=== PATIENT | male | born 1975 | race Caucasian/White ===

== ENCOUNTER → 2017-04-24 | Outpatient (CLI) | payer BC ==
--- NOTE | 2017-04-27 13:01 | CONS ---
PCP is Dr. Obrien. REASON FOR THE EVALUATION: Loud snoring. 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 He snores loud and his is unable to sleep next him because of his loud snore. He sleeps on his side. He has a nose breather. On 2 occasions, he has woken up from sleep due to choking/gasping; however, this has not been of a frequent occurrence. He goes to bed around 10 p.m., wakes up at 3:30 a.m. in the morning and he has to be at work at around 5 a.m. and he works 12 hour shifts 4 days a week. On weekends, he goes to bed at the same time, however, wakes up at 6 a.m. in the morning. He seems to be averaging between 5 to 7 hours of sleep. No nighttime GERD or heartburn. No palpitations. No restlessness of the lower extremities. No sleep walking or sleep talking. No dry mouth. No reported grinding of the teeth. He has undergone recent dental surgery, dental procedure and he is currently wearing ( ). His current Glendale score is 18. He does not fall asleep while driving. He does not fall asleep while performing routine day to day activities or while on the job. No history of substance. No history of alcoholism. Negative family history for sleep apnea. Past medical history is negative. Past surgical history includes lymph node removed from the neck, benign and hernia repair. Allergies are to PENICILLIN. Medications are none. SOCIAL HISTORY: Nonsmoker. No history of alcohol. No history of IV drugs. 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 FAMILY HISTORY: Negative for sleep apnea. REVIEW OF SYSTEMS: Twelve-point review of systems was done, positive findings were mentioned above in history of present illness. BP is 152/92, pulse 74, respirations 16, temperature 98.2, saturation 98% on room air. Weight is 193, height is 5 feet 7 inches. Neck size is 16-1/4. BMI is 30.2. GENERAL APPEARANCE: Calm, comfortable. HEENT; Mallampati class 2. There is no goiter or neck masses. Lungs are clear to auscultation. Heart sounds regular rate and rhythm. Normal S1 and S2. ABDOMEN: Soft, nontender. No organomegaly. EXTREMITIES: No edema, cyanosis or clubbing. IMPRESSION: 1. Loud snoring. 2. Insufficient sleep syndrome with chronic hypersomnia and sleepiness with an Glendale score of 18. 3. Questionable obstructive sleep apnea. PLAN: My overall suspicion for sleep apnea is low. I think the patient has insufficiency sleep syndrome. He needs to extend his sleep hours by an average of 2 hours per night. I would recommend him going to sleep at an earlier hour, probably at around 8 p.m. on working days. His sleepiness is probably linked to his chronic sleep insufficiency. At the same time, due to his loud snore, will proceed with a home sleep study to look for any significant sleep breathing disorder. Encourage weight loss. Avoid alcoholic beverages late at night time. Avoid muscle relaxants. Implement good sleep hygiene measures. Will continue to follow and make further recommendations based on the results of the home sleep study. PEPITO
== END | disposition home or self-care (01) ==
LOC: SLEEP 16:38
PROVIDERS: ATTEND Internal Medicine Critical Care Medicine
DX: R06.83 Snoring (principal); F51.12 Insufficient sleep syndrome
CPT/HCPCS: 99211

== ENCOUNTER → 2019-11-14 | Outpatient (CLI) | payer BC ==
[2019-11-14 08:02] LABS: Basophils % (A) 0 %; Eosinophils # (A) 0.1 k/uL (0-0.7); Eosinophils % (A) 2 %; HCT 42.7 % (39.0-53.0); HGB 13.9 gm/dL (13.0-17.5); Lymphocytes # (A) 1.7 k/uL (1.0-4.8); Lymphocytes % (A) 30 %; MCH 30.1 pg (25.0-35.0); MCHC 32.5 g/dL (31.0-37.0); MCV 92.8 fL (80.0-100.0); Mean Platelet Volume 7.4; Monocytes # (A) 0.4 k/uL (0-1.0); Monocytes % (A) 7 %; Neutrophils # (A) 3.3 k/uL (1.3-7.7); Neutrophils % (A) 58 %; Platelet Count 278 k/uL (150-450); RBC 4.61 m/uL (4.30-5.90); RDW 12.5 % (11.5-15.5); WBC 5.8 k/uL (3.8-10.6)
[2019-11-14 18:03] LABS: Albumin 4.6 g/dL (3.80-4.90); Albumin/Globulin Ratio 2.19 (1.60-3.17); Anion Gap 9.4 mmol/L (4.00-12.00); BUN/Creat Ratio 16.15 Ratio (12.00-20.00); Calcium 9.6 mg/dL (8.7-10.3); Carbon Dioxide 26.6 mmol/L (21.6-31.8); Chol/HDL Ratio 4.39; Globulin 2.1 g/dL (1.6-3.3); LDL Cholesterol,Calculated 130.8 mg/dL (0.0-131.0); Non-African American GFR(CKD) 67.3 (60.0-200.0); Potassium 4.5 mmol/L (3.5-5.5); Total Bilirubin 0.6 mg/dL (0.2-1.2); Total Protein 6.7 g/dL (6.2-8.2); VLDL Calculation 18.2 mg/dL (5.00-40.00)
== END | disposition home or self-care (01) ==
LOC: LABWHC1 07:28
PROVIDERS: ATTEND Internal Medicine
DX: Z00.00 Encounter for general adult medical examination without abnormal findings (principal); I10 Essential (primary) hypertension; Z12.5 Encounter for screening for malignant neoplasm of prostate
CPT/HCPCS: 80061; 80053; 85025; 36415; G0103

== ENCOUNTER 2020-09-25 23:46 | Inpatient (IN) | payer BC ==
[2020-09-26] MEDS ORDERED: SODIUM CHLORIDE 0.9% 500 ML 500 ML IV STA (00:04)
[2020-09-26] MEDS ORDERED: DILTIAZEM ORAL 30 MG TAB PO STA (00:07)
--- NOTE | 2020-09-26 00:10 | ED ---
General Adult HPI - General Source: patient Mode of arrival: wheelchair Limitations: no limitations <Ruth Sultana - Last Filed: 09/26/20 01:55> <Viet James - Last Filed: 09/26/20 09:09> - General Chief complaint: Syncope Stated complaint: Syncope Time Seen by Provider: 09/25/20 23:53 - History of Present Illness Initial comments: 44-year-old male patient presents to the emergency department today for ev aluation after experiencing a syncopal event at home. Patient states he got up from bed and went to the bathroom, urinated, and turn to come out when he passed out. states he did strike his head. States he was unconscious for approximately 1 minute before he came to. They did have EMS come out, decided to bring themselves in. Patient states he does feel somewhat disoriented at this time. Denies any headache, blurred vision, double vision. Denies any chest pain or shortness of breath. Denies palpitations. Denies any injuries to arms or legs. Denies recent diarrhea, nausea, or vomiting. States he has been eating and drinking without difficulty. Patient denies any recent rash, fever, chills, cough, abdominal pain, nausea, vomiting, diarrhea, constipation, back pain, hematuria, dysuria, urinary urgency, urinary frequency, or any other complaints. (Ruth Sultana) - Related Data Home Medications Medication Instructions Recorded Confirmed Lisinopril [Zestril] 20 mg PO DAILY 09/26/20 09/26/20 amLODIPine [Norvasc] 5 mg PO DAILY 09/26/20 09/26/20 Allergies Allergy/AdvReac Type Severity Reaction Status Date / Time Penicillins Allergy Unknown Verified 09/25/20 23:52 Review of Systems ROS Other: All systems not noted in ROS Statement are negative. <Ruth Sultana - Last Filed: 09/26/20 01:55> ROS Other: All systems not noted in ROS Statement are negative. <Viet James - Last Filed: 09/26/20 09:09> ROS Statement: Those systems with pertinent positive or pertinent negative responses have been documented in the HPI. Past Medical History Past Medical History: Cancer, Hypertension Additional Past Medical History / Comment(s): lymphoma History of Any Multi-Drug Resistant Organisms: None Reported Past Surgical History: Hernia Repair Past Psychological History: No Psychological Hx Reported Smoking Status: Never smoker Past Alcohol Use History: Occasional Past Drug Use History: None Reported <Ruth Sultana - Last Filed: 09/26/20 01:55> General Exam Limitations: no limitations General appearance: alert, in no apparent distress, other (This is a well- developed, well-nourished adult male patient in no acute distress. Vital signs upon presentation are temperature 97.9F, pulse 87, respirations 18, blood pressure 159/88, pulse ox 99% on room air.) Eye exam: Present: normal appearance, PERRL, EOMI. Absent: scleral icterus, conjunctival injection, periorbital swelling ENT exam: Present: normal exam, normal oropharynx, mucous membranes moist Respiratory exam: Present: normal lung sounds bilaterally. Absent: respiratory distress, wheezes, rales, rhonchi, stridor Cardiovascular Exam: Present: regular rate, irregular rhythm, normal heart sounds. Absent: systolic murmur, diastolic murmur, rubs, gallop, clicks GI/Abdominal exam: Present: soft, normal bowel sounds. Absent: distended, tenderness, guarding, rebound, rigid Neurological exam: Present: alert, oriented X3, CN II-XII intact Psychiatric exam: Present: normal affect, normal mood Skin exam: Present: warm, dry, intact, normal color. Absent: rash <Ruth Sultana M - Last Filed: 09/26/20 01:55> Course Vital Signs 09/25/20 09/26/20 09/26/20 23:47 01:16 02:28 Temperature 97.9 F Pulse Rate 87 90 95 Respiratory 18 17 17 Rate Blood Pressure 159/88 124/100 128/91 O2 Sat by Pulse 99 97 98 Oximetry 09/26/20 09/26/20 09/26/20 04:11 06:10 07:40 Temperature 98.1 F Pulse Rate 89 90 98 Respiratory 18 16 18 Rate Blood Pressure 128/90 128/90 149/93 O2 Sat by Pulse 97 98 97 Oximetry Medical Decision Making - Lab Data Result diagrams: 09/26/20 00:30 09/26/20 00:30 - Radiology Data Radiology results: report reviewed, image reviewed <Ruth Sultana - Last Filed: 09/26/20 01:55> - Lab Data Result diagrams: 09/26/20 00:30 09/26/20 00:30 <Viet James - Last Filed: 09/26/20 09:09> - Medical Decision Making 44-year-old male patient past medical history significant for hypertension, not currently taking medication presents to the emergency department today for evaluation after having a syncopal episode at home. Physical examination did reveal irregularly irregular heart sounds. Clear lung sounds. Does have some tenderness and soft tissue swelling noted to the posterior scalp. He is n eurologically intact with no focal deficits. Patient's heart rate was initially in the 90s so we did give an oral dose of Cardizem. We did wait for results of CT brain which were negative to start heparin. Patient's heart rate then increased again was in the 120s to 130s so we did start IV Cardizem. He'll be admitted to the hospital for cardiology evaluation. Patient and are agreeable this plan. (Ruth Sultana) - Lab Data Lab Results 09/26/20 09/26/20 09/26/20 Range/Units 00:30 00:30 00:30 WBC 9.5 (3.8-10.6) k/uL RBC 4.98 (4.30-5.90) m/uL Hgb 15.1 (13.0-17.5) gm/dL Hct 44.4 (39.0-53.0) % MCV 89.2 (80.0-100.0) fL MCH 30.3 (25.0-35.0) pg MCHC 34.0 (31.0-37.0) g/dL RDW 12.2 (11.5-15.5) % Plt Count 321 (150-450) k/uL MPV 6.5 Neutrophils % 60 % Lymphocytes % 27 % Monocytes % 8 % Eosinophils % 3 % Basophils % 1 % Neutrophils # 5.7 (1.3-7.7) k/uL Lymphocytes # 2.6 (1.0-4.8) k/uL Monocytes # 0.8 (0-1.0) k/uL Eosinophils # 0.2 (0-0.7) k/uL Basophils # 0.1 (0-0.2) k/uL PT 10.2 (9.0-12.0) sec INR 1.0 (<1.2) APTT 22.1 (22.0-30.0) sec Sodium 136 L (137-145) mmol/L Potassium 3.6 (3.5-5.1) mmol/L Chloride 103 (98-107) mmol/L Carbon Dioxide 26 (22-30) mmol/L Anion Gap 7 mmol/L BUN 21 H (9-20) mg/dL Creatinine 0.92 (0.66-1.25) mg/dL Est GFR (CKD-EPI)AfAm >90 (>60 ml/min/1.73 sqM) Est GFR (CKD-EPI)NonAf >90 (>60 ml/min/1.73 sqM) Glucose 114 H (74-99) mg/dL Calcium 9.4 (8.4-10.2) mg/dL Magnesium 2.1 (1.6-2.3) mg/dL Total Bilirubin 0.3 (0.2-1.3) mg/dL AST 31 (17-59) U/L ALT 25 (4-49) U/L Alkaline Phosphatase 91 (38-126) U/L Troponin I (0.000-0.034) ng/mL Total Protein 7.6 (6.3-8.2) g/dL Albumin 4.6 (3.5-5.0) g/dL 09/26/20 Range/Units 00:30 WBC (3.8-10.6) k/uL RBC (4.30-5.90) m/uL Hgb (13.0-17.5) gm/dL Hct (39.0-53.0) % MCV (80.0-100.0) fL MCH (25.0-35.0) pg MCHC (31.0-37.0) g/dL RDW (11.5-15.5) % Plt Count (150-450) k/uL MPV Neutrophils % % Lymphocytes % % Monocytes % % Eosinophils % % Basophils % % Neutrophils # (1.3-7.7) k/uL Lymphocytes # (1.0-4.8) k/uL Monocytes # (0-1.0) k/uL Eosinophils # (0-0.7) k/uL Basophils # (0-0.2) k/uL PT (9.0-12.0) sec INR (<1.2) APTT (22.0-30.0) sec Sodium (137-145) mmol/L Potassium (3.5-5.1) mmol/L Chloride (98-107) mmol/L Carbon Dioxide (22-30) mmol/L Anion Gap mmol/L BUN (9-20) mg/dL Creatinine (0.66-1.25) mg/dL Est GFR (CKD-EPI)AfAm (>60 ml/min/1.73 sqM) Est GFR (CKD-EPI)NonAf (>60 ml/min/1.73 sqM) Glucose (74-99) mg/dL Calcium (8.4-10.2) mg/dL Magnesium (1.6-2.3) mg/dL Total Bilirubin (0.2-1.3) mg/dL AST (17-59) U/L ALT (4-49) U/L Alkaline Phosphatase (38-126) U/L Troponin I <0.012 (0.000-0.034) ng/mL Total Protein (6.3-8.2) g/dL Albumin (3.5-5.0) g/dL - Radiology Data CT brain without contrast was obtained. Report was reviewed in its entirety. Impression by Dr. Giles shows no acute hemorrhage, hydrocephalus, or mass effect. Small air-fluid level in the left maxillary sinus. (Ruth Sultana) Disposition Decision to Admit Reason: Admit from EC Decision Date: 09/26/20 Decision Time: 01:25 <Ruth Sultana - Last Filed: 09/26/20 01:55> <Viet James - Last Filed: 09/26/20 09:09> Clinical Impression: New onset a-fib, Syncope Disposition: ADMITTED IP TO THIS [facility] Condition: Serious
[2020-09-26 00:34] LABS: Basophils # (A) 0.1 k/uL (0-0.2); Basophils % (A) 1 %; Eosinophils # (A) 0.2 k/uL (0-0.7); Eosinophils % (A) 3 %; HCT 44.4 % (39.0-53.0); HGB 15.1 gm/dL (13.0-17.5); Lymphocytes # (A) 2.6 k/uL (1.0-4.8); Lymphocytes % (A) 27 %; MCH 30.3 pg (25.0-35.0); MCV 89.2 fL (80.0-100.0); Mean Platelet Volume 6.5; Monocytes # (A) 0.8 k/uL (0-1.0); Monocytes % (A) 8 %; Neutrophils # (A) 5.7 k/uL (1.3-7.7); Neutrophils % (A) 60 %; Platelet Count 321 k/uL (150-450); RBC 4.98 m/uL (4.30-5.90); RDW 12.2 % (11.5-15.5); WBC 9.5 k/uL (3.8-10.6)
[2020-09-26 00:44] LABS: ALT 25 U/L (4-49); AST 31 U/L (17-59); African American GFR (CKD) >90 (>60 ml/min/1.73 sqM); Albumin 4.6 g/dL (3.5-5.0); Alkaline Phosphatase 91 U/L (38-126); Anion Gap 7 mmol/L; Blood Urea Nitrogen 21 mg/dL (9-20); Calcium 9.4 mg/dL (8.4-10.2); Carbon Dioxide 26 mmol/L (22-30); Chloride 103 mmol/L (98-107); Glucose 114 mg/dL (74-99); Magnesium 2.1 mg/dL (1.6-2.3); Non-African American GFR(CKD) >90 (>60 ml/min/1.73 sqM); Potassium 3.6 mmol/L (3.5-5.1); Sodium 136 mmol/L (137-145); Total Bilirubin 0.3 mg/dL (0.2-1.3); Total Protein 7.6 g/dL (6.3-8.2)
[2020-09-26 01:09] LABS: Partial Thromboplastin Time 22.1 sec (22.0-30.0); Prothrombin Time 10.2 sec (9.0-12.0)
--- NOTE | 2020-09-26 01:11 | XR ---
EXAM: XR Chest, 2 Views CLINICAL HISTORY: ITS.REASON XR Reason: dysrhythmia TECHNIQUE: Frontal and lateral views of the chest. COMPARISON: No relevant prior studies available. FINDINGS: Lungs: No consolidation or mass. Pleural space: No effusion. Heart: No cardiomegaly. Bones/joints: No acute findings. IMPRESSION: No acute cardiopulmonary process.
--- NOTE | 2020-09-26 01:11 | CT ---
EXAM: CT Head Without Intravenous Contrast CLINICAL HISTORY: ITS.REASON CT Reason: Head injury TECHNIQUE: Axial computed tomography images of the head/brain without intravenous contrast. CTDI is 49.27 mGy and DLP is 1123.4 mGy-cm. This CT exam was performed using one or more of the following dose reduction techniques: automated exposure control, adjustment of the mA and/or kV according to patient size, and/or use of iterative reconstruction technique. COMPARISON: No relevant prior studies available. FINDINGS: Brain: No hemorrhage or mass effect. Ventricles: No hydrocephalus. Bones/joints: Unremarkable. Soft tissues: Unremarkable. Sinuses: Small air-fluid level in the left maxillary sinus. Mastoid air cells: Clear. IMPRESSION: No acute hemorrhage, hydrocephalus, or mass effect. Small air-fluid level in the left maxillary sinus.
[2020-09-26] MEDS ORDERED: HEPARIN SODIUM,PORCINE 5,000 UNIT/ML 1 ML VIAL IV ONE (01:24)
[2020-09-26] MEDS ORDERED: DILTIAZEM DRIP BOLUS FROM BAG 1 MG SOLN IV ONE (01:24)
[2020-09-26] MEDS ORDERED: NALOXONE 0.4 MG/ML 1 ML VIAL IV PRN (01:25)
[2020-09-26] MEDS ORDERED: DILTIAZEM 125 MG in SODIUM CHLORIDE 0.9% 100 ML IV SCH (01:30)
[2020-09-26] MEDS: HEPARIN SOD,PORK IN 0.45% NACL 25,000 UNIT in 0.45% NACL 1 250ML.BAG IV SCH (01:59)
[2020-09-26] MEDS: SODIUM CHLORIDE 0.9% 1,000 ML IV SCH (02:04)
--- NOTE | 2020-09-26 03:47 | P.HPIM ---
History of Present Illness H&P Date: 09/26/20 Chief Complaint: syncope 44 year old male with hypertension , and history of lymphoma s/p radiation patient was at baseline status of health. today he woke up to go to the bathroom , felt dizzy and passed out, fell down and hit his head, his respnded to the thud and called 911 when she found her not responsive lasted one min and regained consciousness. he only recalls dizziness , denies any chest pain , or trouble breathing, denies any palpitations. he denies any exertional chest pain , or any cardiac history. he denies any recent travel, or hospitalization. 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 in the ED , blood work was unremarkable patient started on cardizem and heparin drip Review of Systems Pertinent positives as noted in HPI. All other systems were reviewed and are negative Past Medical History Past Medical History: Cancer, Hypertension Additional Past Medical History / Comment(s): lymphoma History of Any Multi-Drug Resistant Organisms: None Reported Past Surgical History: Hernia Repair Past Psychological History: No Psychological Hx Reported Smoking Status: Never smoker Past Alcohol Use History: Occasional Past Drug Use History: None Reported - Past Family History family Family Medical History: No Reported History Medications and Allergies Home Medications Medication Instructions Recorded Confirmed Type Lisinopril [Zestril] 20 mg PO DAILY 09/26/20 09/26/20 History amLODIPine [Norvasc] 5 mg PO DAILY 09/26/20 09/26/20 History Allergies Allergy/AdvReac Type Severity Reaction Status Date / Time Penicillins Allergy Unknown Verified 09/25/20 23:52 Physical Exam Vitals: Vital Signs Temp Pulse Resp BP Pulse Ox 09/26/20 02:28 95 17 128/91 98 09/26/20 01:16 90 17 124/100 97 09/25/20 23:47 97.9 F 87 18 159/88 99 Intake and Output 09/25/20 09/25/20 09/26/20 14:59 22:59 06:59 Other: Weight 83.915 kg Constitutional: No acute distress, conversant, pleasant Eyes: Anicteric sclerae, moist conjunctiva, Pupils equal round reactive to light ENMT: NC/AT Oropharynx clear, no erythema, or exudates Neck: Supple, FROM, no masses, or JVD No carotid bruits No thyromegaly Lungs: Clear to auscultation Clear to percussion Normal respiratory effort, no accessory muscle use Cardiovascular: Heart irregular in rate and rhythm No murmurs, gallops, or rubs No peripheral edema Abdominal: Soft Nontender, no guarding, rebound or rigidity Abdomen moving with respiration Normoactive bowel sounds No hepatomegaly, No splenomegaly No palpable mass No abdominal wall hernia noted Skin: Normal temperature, tone, texture, turgor No induration No subcutaneous nodules No rash, lesions No ulcers Extremities: No digital cyanosis No clubbing Pedal pulses intact and symmetrical Radial pulses intact and symmetrical No calf tenderness Psychiatric: Alert and oriented to person, place and time Appropriate affect fair judgement Neuro Muscles Strength 5/5 in all 4 extremities Sensation to light touch grossly present throughout Cranial nerves II-XII grossly intact No focal sensory deficits Lymphatics: no palpable cervical or supraclavicular , or inguinal lymph nodes Results CBC & Chem 7: 09/26/20 00:30 09/26/20 00:30 Labs: Abnormal Lab Results - Last 24 Hours (Table) 09/26/20 Range/Units 00:30 Sodium 136 L (137-145) mmol/L BUN 21 H (9-20) mg/dL Glucose 114 H (74-99) mg/dL Assessment and Plan Assessment: new onset afib with RVR on heparin drip and cardizem drip cardiology consult check TSH electrolytes unremarkable check ECHO 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
[2020-09-26] MEDS: amLODIPine 5 MG TAB PO SCH (07:41)
[2020-09-26] MEDS ORDERED: ONDANSETRON 4 MG/2 ML VIAL IVP PRN (09:16)
[2020-09-26] MEDS ORDERED: ACETAMINOPHEN TAB 325 MG TAB PO PRN (09:17)
[2020-09-26] MEDS: HEPARIN SODIUM,PORCINE 5,000 UNIT/ML 1 ML VIAL IV PRN ×2 (09:26→23:35)
[2020-09-26] MEDS: lisinopriL 20 MG TAB PO SCH (09:28)
[2020-09-26] MEDS: METOPROLOL TARTRATE 25 MG TAB PO SCH ×2 (09:29→20:53)
--- NOTE | 2020-09-26 13:09 | P.PN ---
Progress Note - Text Progress Note Date: 09/26/20 I saw and evaluated the patient at bedside today. I agree with the plan as documented in the H&P. Cardiology will consult on patient today. I recommended that patient will require a sleep study as an outpatient due to high likelihood of sleep apnea. tells me he snores loudly and sometimes stops breathing for short periods of time at night.
--- NOTE | 2020-09-26 13:53 | P.CRDCN ---
History of Present Illness Consult date: 09/26/20 History of present illness: CHIEF COMPLAINT: New-onset A. fib, syncope HISTORY OF PRESENT ILLNESS: This is a 44-year-old male with a past medical history significant for hypertension. Patient does not follow with a cardiologi st. We have been asked to see the patient in consultation for A. fib and syncope. Patient examined this morning in the emergency room. Patient reports he had just finished urinating yesterday when he began to feel a little dizzy. Patient then passed out. There was loss of consciousness per the patient's . Patient was brought to the hospital for further evaluation. EKG completed revealed atrial fibrillation. The patient's heart rate did become uncontrolled in the emergency room and he was started on IV Cardizem drip. He has since converted to sinus mechanism. He denies chest pain or pressure. Denies shortness of breath. Denies family history of heart disease. DIAGNOSTICS: EKG reveals atrial fibrillation Chest xray no active process Laboratory data: WBC 9.5. Hemoglobin 15.1. Platelet count 321. Sodium 136. Potassium 3.6. BUN 21. Creatinine 0.92. Magnesium 2.1. Troponin negative 1. Current home cardiac medications include Norvasc 5 mg daily and lisinopril 20 mg daily REVIEW OF SYSTEMS: At the time of my exam: CONSTITUTIONAL: Denies fever or chills. HEENT: Denies blurred vision, vision changes, or eye pain. Denies hemoptysis CARDIOVASCULAR: Denies chest pain, orthopnea, PND or palpitations RESPIRATORY: No shortness of breath. GASTROINTESTINAL: Denies abdominal pain. Denies nausea or vomiting. HEMATOLOGIC: Denies bleeding disorders. GENITOURINARY: Denies any blood in urine. SKIN: Denies pruitis. Denies rash. PHYSICAL EXAM: VITAL SIGNS: Reviewed. GENERAL: Well-developed in no acute distress. HEENT: Head is normocephalic. Pupils are equal, round. Sclerae anicteric. Mucous membranes of the mouth are moist. Neck supple. No JVD or thyromegaly LUNGS: Respirations even and unlabored. Lungs essentially clear to auscultation bilaterally. HEART: Regular rate and rhythm. S1 and S2 heard. ABDOMEN: Soft. Nondistended. Nontender. EXTREMITIES: Normal range of motion. No clubbing or cyanosis. Peripheral pulses intact. No lower extremity edema NEUROLOGIC: Awake and alert. Oriented x 3. ASSESSMENT: Syncope New-onset paroxysmal atrial fibrillation with RVR, currently maintaining sinus mechanism Hypertension PLAN: Resume home cardiac medications Check TSH Check d-dimer Continue IV heparin Check orthostatic blood pressures Begin metoprolol 25 mg twice a day Discontinue IV Cardizem Obtain 2-D echo to assess cardiac structure and function Patient to undergo stress test tomorrow Nurse practitioner note has been reviewed by physician. Signing provider agrees with the documented findings, assessment, and plan of care. Past Medical History Past Medical History: Cancer, Hypertension Additional Past Medical History / Comment(s): lymphoma- chemo and radiation 15 years ago History of Any Multi-Drug Resistant Organisms: None Reported Past Surgical History: Hernia Repair Past Anesthesia/Blood Transfusion Reactions: No Reported Reaction Past Psychological History: No Psychological Hx Reported Smoking Status: Never smoker Past Alcohol Use History: Occasional Past Drug Use History: None Reported - Past Family History family Family Medical History: No Reported History Medications and Allergies Home Medications Medication Instructions Recorded Confirmed Type Lisinopril [Zestril] 20 mg PO DAILY 09/26/20 09/26/20 History amLODIPine [Norvasc] 5 mg PO DAILY 09/26/20 09/26/20 History Allergies Allergy/AdvReac Type Severity Reaction Status Date / Time Penicillins Allergy Unknown Verified 09/26/20 09:38 Physical Exam Vitals: Vital Signs Temp Pulse Pulse Resp BP BP Pulse Ox 09/26/20 12:57 97.6 F 67 18 133/85 96 09/26/20 11:00 74 14 127/89 96 09/26/20 10:51 73 18 127/89 97 09/26/20 10:21 74 18 141/92 100 09/26/20 10:09 84 18 129/89 96 09/26/20 10:00 74 14 129/89 97 09/26/20 09:35 86 18 129/89 97 09/26/20 09:12 91 18 09/26/20 09:00 87 14 149/93 09/26/20 08:00 81 14 149/93 09/26/20 07:40 98.1 F 98 18 149/93 97 09/26/20 06:10 90 16 128/90 98 09/26/20 04:11 89 18 128/90 97 09/26/20 02:28 95 17 128/91 98 09/26/20 01:16 90 17 124/100 97 09/25/20 23:47 97.9 F 87 18 159/88 99 Intake and Output 09/25/20 09/26/20 09/26/20 22:59 06:59 14:59 Intake Total 111.104 Balance 111.104 Intake: Intake, IV Titration 111.104 Amount Diltiazem 125 mg In 36.25 Sodium Chloride 0.9% 100 ml @ 5 MG/HR 5 mls/hr IV .Q24H [facility] Rx#:[id number] Heparin Sod,Pork in 0.45% 74.854 NaCl 25,000 unit In 0.45 % NaCl 1 250ml.bag @ 12 UNITS/KG/HR 10.07 mls/hr IV .Q24H [facility] Rx#: [id number] Other: Weight 83.915 kg 83.915 kg Results 09/26/20 00:30 09/26/20 00:30 Cardiac Enzymes 09/26/20 09/26/20 Range/Units 00:30 00:30 AST 31 (17-59) U/L Troponin I <0.012 (0.000-0.034) ng/mL Coagulation 09/26/20 09/26/20 Range/Units 00:30 08:06 PT 10.2 (9.0-12.0) sec APTT 22.1 38.5 H (22.0-30.0) sec CBC 09/26/20 Range/Units 00:30 WBC 9.5 (3.8-10.6) k/uL RBC 4.98 (4.30-5.90) m/uL Hgb 15.1 (13.0-17.5) gm/dL Hct 44.4 (39.0-53.0) % Plt Count 321 (150-450) k/uL Comprehensive Metabolic Panel 09/26/20 Range/Units 00:30 Sodium 136 L (137-145) mmol/L Potassium 3.6 (3.5-5.1) mmol/L Chloride 103 (98-107) mmol/L Carbon Dioxide 26 (22-30) mmol/L BUN 21 H (9-20) mg/dL Creatinine 0.92 (0.66-1.25) mg/dL Glucose 114 H (74-99) mg/dL Calcium 9.4 (8.4-10.2) mg/dL AST 31 (17-59) U/L ALT 25 (4-49) U/L Alkaline Phosphatase 91 (38-126) U/L Total Protein 7.6 (6.3-8.2) g/dL Albumin 4.6 (3.5-5.0) g/dL Current Medications Generic Name Dose Route Start Last Admin Trade Name Freq PRN Reason Stop Dose Admin Acetaminophen 650 mg 09/26/20 09:17 09/26/20 09:28 Acetaminophen Tab 325 Mg Tab PO 650 mg Q4HR PRN Administration Fever and/ or Pain Amlodipine Besylate 5 mg 09/26/20 09:00 09/26/20 07:41 Amlodipine 5 Mg Tab PO 5 mg DAILY [facility] Administration Heparin Sodium (Porcine) 0 unit 09/26/20 01:24 09/26/20 09:26 Heparin Sodium,Porcine 5,000 Unit/Ml 1 Ml Vial IV 2,075 unit PER PROTOCOL PRN Administration Low PTT Protocol Diltiazem HCl 125 mg/ Sodium 125 mls @ 5 mls/hr 09/26/20 01:30 09/26/20 09:15 Chloride IV 5 mg/hr .Q24H [facility] 5 mls/hr Infusion 5 MG/HR Heparin Sodium/Sodium Chloride 250 mls @ 10.07 mls/hr 09/26/20 01:30 09/26/20 09:25 25,000 unit/ Sodium Chloride IV 10 units/kg/hr .Q24H [facility] 8.392 mls/hr Titration Protocol 12 UNITS/KG/HR Sodium Chloride 1,000 mls @ 20 mls/hr 09/26/20 01:30 09/26/20 02:04 Saline 0.9% IV 20 mls/hr .Q24H [facility] Administration Lisinopril 20 mg 09/26/20 09:15 09/26/20 09:28 Lisinopril 20 Mg Tab PO 20 mg DAILY SAL Administration Metoprolol Tartrate 25 mg 09/26/20 09:15 09/26/20 09:29 Metoprolol Tartrate 25 Mg Tab PO 25 mg BID SAL Administration Naloxone HCl 0.2 mg 09/26/20 01:25 Naloxone 0.4 Mg/Ml 1 Ml Vial IV Q2M PRN Opioid Reversal Ondansetron HCl 4 mg 09/26/20 09:16 09/26/20 09:29 Ondansetron 4 Mg/2 Ml Vial IVP 4 mg Q6HR PRN Administration Nausea And Vomiting Intake and Output 09/25/20 09/26/20 09/26/20 22:59 06:59 14:59 Intake Total 111.104 Balance 111.104 Intake: Intake, IV Titration 111.104 Amount Diltiazem 125 mg In 36.25 Sodium Chloride 0.9% 100 ml @ 5 MG/HR 5 mls/hr IV .Q24H [facility] Rx#:[id number] Heparin Sod,Pork in 0.45% 74.854 NaCl 25,000 unit In 0.45 % NaCl 1 250ml.bag @ 12 UNITS/KG/HR 10.07 mls/hr IV .Q24H [facility] Rx#: [id number] Other: Weight 83.915 kg 83.915 kg Patient Weight 09/27/20 06:59 Weight 83.915 kg 09/26/20 00:30 09/26/20 00:30
[2020-09-26] MEDS ORDERED: HEPARIN SODIUM,PORCINE 5,000 UNIT/ML 1 ML VIAL IV STA (15:54)
[2020-09-26 22:57] VITALS: TEMP 97.9
[2020-09-27] MEDS: HEPARIN SOD,PORK IN 0.45% NACL 25,000 UNIT in 0.45% NACL 1 250ML.BAG IV SCH (03:35)
[2020-09-27] MEDS: SODIUM CHLORIDE 0.9% 1,000 ML IV SCH (03:40)
[2020-09-27 05:39] LABS: Basophils % (A) 0 %; Eosinophils # (A) 0.2 k/uL (0-0.7); Eosinophils % (A) 2 %; HCT 45.1 % (39.0-53.0); HGB 14.6 gm/dL (13.0-17.5); Lymphocytes # (A) 2.3 k/uL (1.0-4.8); Lymphocytes % (A) 26 %; MCH 29.9 pg (25.0-35.0); MCHC 32.5 g/dL (31.0-37.0); MCV 92.1 fL (80.0-100.0); Mean Platelet Volume 7.2; Monocytes # (A) 0.5 k/uL (0-1.0); Monocytes % (A) 6 %; Neutrophils # (A) 5.6 k/uL (1.3-7.7); Neutrophils % (A) 65 %; Platelet Count 310 k/uL (150-450); RDW 12.9 % (11.5-15.5); WBC 8.7 k/uL (3.8-10.6)
[2020-09-27] MEDS: amLODIPine 5 MG TAB PO SCH (10:43)
[2020-09-27] MEDS: lisinopriL 20 MG TAB PO SCH (10:44)
[2020-09-27] MEDS: METOPROLOL TARTRATE 25 MG TAB PO SCH (10:44)
--- NOTE | 2020-09-27 10:56 | ECHOF ---
Referral Reason:afib RVR MEASUREMENTS -------- HEIGHT: 172.7 cm WEIGHT: 83.5 kg BP: 107/57 RVIDd: 2.5 cm (< 3.3) IVSd: 1.3 cm (0.6 - 1.1) LVIDd: 4.2 cm (3.9 - 5.3) LVPWd: 1.7 cm (0.6 - 1.1) IVSs: 1.7 cm LVIDs: 3.2 cm LVPWs: 1.9 cm LAESV Index (A-L): 22.63 ml/m Ao Diam: 2.7 cm (2.0 - 3.7) AV Cusp: 1.7 cm (1.5 - 2.6) MV EXCURSION: 14.378 mm (> 18.000) MV EF SLOPE: 45 mm/s (70 - 150) EPSS: 0.1 cm MV E Pete: 0.62 m/s MV DecT: 213 ms MV A Pete: 0.92 m/s MV E/A Ratio: 0.68 AR PHT: 401 ms RAP: 5.00 mmHg RVSP: 29.77 mmHg FINDINGS -------- Sinus rhythm. This was a technically adequate study. The left ventricular size is normal. There is mild concentric left ventricular hypertrophy. Overa ll left ventricular systolic function is normal with, an EF between 55 - 60 %. The diastolic fillin g pattern is normal for the age of the patient 8.32. The right ventricle is normal in size. Normal LA size by volume 22+/-6 ml/m2. The right atrial size is normal. Interatrial and interventricular septum intact. There is mild aortic valve sclerosis. There is mild aortic regurgitation. There is no evidence of aortic stenosis. The mitral valve is normal. There is trace mitral regurgitation. Trace tricuspid regurgitation present. Right ventricular systolic pressure is normal at < 35 mmHg. The right ventricular systolic pressure, as measured by Doppler, is 29.77mmHg. There is no pulmonic regurgitation present. The aortic root size is normal. Normal inferior vena cava with normal inspiratory collapse consistent with estimated right atrial pre ssure of 5 mmHg. There is no pericardial effusion. CONCLUSIONS -------- 1. There is mild concentric left ventricular hypertrophy. 2. Overall left ventricular systolic function is normal with, an EF between 55 - 60 %. 3. The diastolic filling pattern is normal for the age of the patient 8.32 4. Normal LA size by volume 22+/-6 ml/m2. 5. There is mild aortic valve sclerosis. 6. There is mild aortic regurgitation. 7. There is trace mitral regurgitation. 8. Trace tricuspid regurgitation present. WEB PRESS ROLL TENDER: Lucía Noland RDCS
[2020-09-27 10:59] VITALS: RESP 16
--- NOTE | 2020-09-27 12:54 | ECHOS ---
STRESS ECHOCARDIOGRAM LUMASON: N/A Vial INDICATIONS: Syncope MEDICATIONS: BASELINE HEART RATE: 65 BASELINE BLOOD PRESSURE: 55/57 MAXIMUM HEART RATE: 159 MAXIMUM BLOOD PRESSURE: 136/68 85% MPHR: 151 100% MPHR: 178 METS: 12.1 MAXIMUM STAGE REACHED: 4 TOTAL EXERCISE TIME: 10:15 CLINICAL INFORMATION: Baseline rhythm is a sinus mechanism, rate of 65, normal axis and intervals. Normal echocardiogram. Baseline blood pressure 88/57 mmHg. Patient exercised on David protocol for 10 minutes, 15 seconds reaching peak rate of 159 beats per minute which is equal to 89% maximum predicted heart rate. Peak blood pressure 136/68 mmHg. Test was terminated due to fatigue. There was no chest pain. Electrocardiograph monitoring revealed [address]-segment depression that improved in recovery. FINDINGS: Baseline echocardiogram revealed normal wall motion. At peak exercise, there was normal wall motion augmentation with no hypokinesis or dyskinesis. CONCLUSION: 1. Good exercise tolerance with mildly positive electrocardiograph stress testing. 2. Normal stress echocardiogram with no evidence of stress-induced ischemia. MMODL / IJN: [id number] /
[2020-09-27 14:54] VITALS: BP 111/64
--- NOTE | 2020-09-27 15:18 | P.DS ---
Providers Date of admission: 09/26/20 01:36 Expected date of discharge: 09/27/20 Attending physician: Marin Huggins MD Consults: 09/26/20 01:25 Consult Physician Routine Consulting Provider: [facility] Consult Reason/Comments: New onset afib; syncope Do you want consulting provider notified?: Yes Primary care physician: [facility] Course: Patient is a 44-year-old male with a PMH of hypertension and lymphoma (in remission) who presented to the emergency room after an episode of syncope. The patient had woken up at night to go to the bathroom, had become lightheaded and follow the ground hitting his head. The patient's had heard the thud who had subsequent activated EMS. The patient was reportedly unconscious for around a minute. He was brought into the emergency room where he was noted to be in A. fib at 99 bpm. Regency to was unremarkable. Cardiology was consulted and the patient underwent a Stress echocardiogram which was negative for stress-induced ischemia. The patient was started on Eliquis with outpatient cardiology follow- up for an event monitor. He was seen and examined at the bedside on the day of discharge. He reported feeling well with no active complaints. He reported no further episodes of dizziness or loss of consciousness. He also denied chest pain, shortness of breath, palpitation, nausea, vomiting, abdominal pain, or diarrhea. The patient was advised to refrain from driving or operating heavy machinery until after clearance following his outpatient cardiology appointment. Physical Examination General: Non-toxic, in no acute distress, appears stated age, normal weight HEENT: NC/AT, anicteric sclerae, moist conjunctiva, no lid-lag, PERRLA Cardiovascular: S1/S2 wnl, no murmurs, rubs, or gallops Lungs: Clear to auscultation, normal respiratory effort, no accessory muscle use Abdominal: Soft, non-tender, non-distended, no guarding, rebound, or rigidity Skin: Warm, dry Extremities: No edema or contractures Psychiatric: Alert and oriented to person, place and time, appropriate affect Neuro: CN II-XII grossly intact, Strength 5/5 in all 4 extremities, Speech intact, Sensation to light touch grossly intact throughout Discharge diagnosis: Syncope; A. fib with RVR; hypertension A total of 35 minutes of time were spent preparing this complex discharge summary. Patient Condition at Discharge: Fair Plan - Discharge Summary New Discharge Prescriptions: New Apixaban [Eliquis] 5 mg PO BID #60 tab Metoprolol Tartrate [Lopressor] 25 mg PO BID #60 tab Continue Lisinopril [Zestril] 20 mg PO DAILY amLODIPine [Norvasc] 5 mg PO DAILY Discharge Medication List Lisinopril [Zestril] 20 mg PO DAILY 09/26/20 [History] amLODIPine [Norvasc] 5 mg PO DAILY 09/26/20 [History] Apixaban [Eliquis] 5 mg PO BID #60 tab 09/27/20 [Rx] Metoprolol Tartrate [Lopressor] 25 mg PO BID #60 tab 09/27/20 [Rx] Follow up Appointment(s)/Referral(s): Robbie Howard MD [STAFF PHYSICIAN] - 1 Week Farrukh Kinsey Jr, DO [Doctor of Osteopathic Medicine] - 1 Week Antonio Jarrell DO [Doctor of Osteopathic Medicine] - 1 Week Suyapa Tam MD [STAFF PHYSICIAN] - 1 Week Activity/Diet/Wound Care/Special Instructions: Go to [facility] after discharge to have event monitor placed. No Driving until cleared by Cardiology at the follow-up visit. Discharge Disposition: HOME SELF-CARE
[2020-09-27 15:56] VITALS: PULSE 69
--- NOTE | 2020-09-27 17:16 | P.PN ---
Subjective Progress Note Date: 09/27/20 This is a 44-year-old gentleman was admitted to the hospital with a syncopal episode while in the bathroom. He was noted to be in atrial fibrillation on admission but subsequently patient converted to sinus rhythm and has been maintaining sinus rhythm. No complaints of any chest pain. No postural hypote nsion. Stress echo is negative for ischemia. D-dimer is within normal limits. Patient has been doing well without any recurrence of symptoms. Patient is being discharged home. He is advised to have event monitor for a month. Follow-up in the office in one month. Advised her not to drive for 6 months. Patient may be considered for ablation if patient has any recurrence of atrial fibrillation Objective - Vital Signs Vital signs: Vital Signs Temp 97.9 F 09/27/20 00:00 Pulse 69 09/27/20 14:00 Resp 16 09/27/20 11:30 BP 111/64 09/27/20 11:30 Pulse Ox 96 09/27/20 11:30 Intake & Output 09/26/20 09/27/20 09/27/20 18:59 06:59 18:59 Intake Total 168.030 118.220 236 Balance 168.030 118.220 236 Weight 83.915 kg 83.8 kg Intake: Intake, IV Titration 168.030 118.220 Amount Diltiazem 125 mg In 36.25 Sodium Chloride 0.9% 100 ml @ 5 MG/HR 5 mls/hr IV .Q24H [facility] Rx#:[id number] Heparin Sod,Pork in 0.45% 131.780 118.220 NaCl 25,000 unit In 0.45 % NaCl 1 250ml.bag @ 12 UNITS/KG/HR 10.07 mls/hr IV .Q24H [facility] Rx#: [id number] Oral 236 Other: Voiding Method Toilet # Voids 3 2 # Bowel Movements 0 - Exam GENERAL EXAM: Patient is alert and oriented and doesn't appear to be in any acute distress HEENT: Normocephalic. Normal reaction of pupils, equal size, normal range of extraocular motion. No erythema or exudates in the throat. NECK: No masses, no nuchal rigidity. CHEST: No chest wall deformity. LUNGS: Equal air entry with no crackles or wheeze. HEART: S1 and S2 normal with no audible mumurs or gallops. Regular rhythm, femorals equal on both sides.. ABDOMEN: No hepatosplenomegaly, normal bowel sounds, no guarding or rigidity. SKIN: No rashes CENTRAL NERVOUS SYSTEM: No focal deficits. EXTREMITIES: No cyanosis, clubbing or edema. - Labs CBC & Chem 7: 09/27/20 05:19 09/26/20 00:30 Labs: Abnormal Lab Results - Last 24 Hours (Table) 09/26/20 09/27/20 Range/Units 22:29 05:19 APTT 41.7 H 54.1 H (22.0-30.0) sec Assessment and Plan (1) New onset a-fib Status: Acute Code(s): I48.91 - UNSPECIFIED ATRIAL FIBRILLATION SNOMED Code(s): 51173112 (2) Syncope Status: Acute Code(s): R55 - SYNCOPE AND COLLAPSE SNOMED Code(s): 186198943 Plan: Patient is clinically stable. No recurrence of symptoms. Stress echo is negat sharon for ischemia. Echo showed normal LV function. Patient is being discharged home . Patient should have event monitor. Follow-up in the office in one week
== END 2020-09-27 16:12 | disposition home or self-care (01) | DRG 310 ==
LOC: EC 23:46 → 3SCARD 09-26 01:36 → OBSVTOIN 09-26 01:36 → 3SCARD 09-26 14:03
PROVIDERS: ADMIT Internal Medicine; ATTEND Internal Medicine
DX: I48.0 Paroxysmal atrial fibrillation (principal); S09.90XA Unspecified injury of head, initial encounter; I10 Essential (primary) hypertension; R55 Syncope and collapse; Z79.899 Other long term (current) drug therapy; Z85.72 Personal history of non-Hodgkin lymphomas; Z92.3 Personal history of irradiation; Z92.21 Personal history of antineoplastic chemotherapy; Z88.0 Allergy status to penicillin; Z98.890 Other specified postprocedural states; Z87.19 Personal history of other diseases of the digestive system; W18.30XA Fall on same level, unspecified, initial encounter; Y92.002 Bathroom of unspecified non-institutional (private) residence as the place of occurrence of the external cause
CPT/HCPCS: 36415; 70450; 71046; 80053; 83735; 84443; 84484; 85025; 85379; 85610; 85730; 93005; 93306; 93351; 96361; 96365; 96366; 96375; 96376; 99285

== ENCOUNTER → 2020-12-29 | Outpatient (CLI) | payer BC ==
--- NOTE | 2020-12-29 20:41 | CONS ---
CONSULTATION DATE OF SERVICE: 12/29/2020 This is a 45-year-old gentleman who has been evaluated in the sleep center for possible obstructive sleep apnea-hypopnea syndrome. HISTORY OF PRESENT ILLNESS/SLEEP-WAKE EVALUATION: Patient's usual sleep schedule on working days is from 10 p.m. or midnight until 6 a.m. and on weekends from 10 p.m. or midnight until 6 to 7:30 a.m. Usually no problems with falling asleep, although he has a TV set in the bedroom. He normally sleeps on the side position. According to his , he snores. Occasionally he has episodes of gasping for air. While falling asleep he has restless leg symptoms. Normally the patient sleeps through the night; sometimes has episodes of nocturia. No history of hypnagogic hallucinations, sleep paralysis or cataplexy. [place] Sleepiness Scale is increased to 12, which indicates sleepiness. PAST MEDICAL HISTORY: Positive for episodes of atrial fibrillation with syncope, hypertension, Hodgkin's lymphoma, treated by surgery, chemotherapy and radiation therapy in 2005. PAST SURGICAL HISTORY: Hernia repair, biopsy of lymph nodes for Hodgkin's lymphoma. MEDICATIONS: 1. Amlodipine 5 mg once a day. 2. Lisinopril 20 mg once a day. 3. Apixaban 5 mg twice a day. 4. Metoprolol 25 mg twice a day. SOCIAL HISTORY: Negative for smoking. Alcohol consumption: Occasional. FAMILY HISTORY: Arthritis, diabetes, thyroid problems. REVIEW OF SYSTEMS: Snoring, history of episodes of atrial fibrillation with syncope. PHYSICAL EXAMINATION: GENERAL: A pleasant gentleman without distress. VITAL SIGNS: BP 115/73, HR 60, RR 15, height 5 feet 8 inches, weight 186 pounds. Temperature 98.6, oxygen saturation at room air 98%. Body mass index 28.2. HEENT: PERRLA, EOMI. Evaluation of oropharynx showed tongue protrudes midline. Big uvula. Position of soft palate: Mallampati II to III. NECK: Supple. No JVD. Thyroid is not palpable. Neck measures 15-1/2 inches in circumference. LUNGS: Clear to percussion and to auscultation. Good air exchange. No wheezing or rhonchi. HEART: S1, S2 regular. No murmurs, gallops or rubs. ABDOMEN: Soft and nontender. Bowel sounds are present. No organomegaly appreciated. EXTREMITIES: No clubbing or cyanosis. 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 Cranial nerves 2 to 7 intact. There is no fasciculation or atrophy. noted. No focal deficits observed. IMPRESSION: 1. Snoring, awakenings from sleep with gasping for air, sleepiness, [place] Sleepiness Scale increased to 12; obstructive sleep apnea-hypopnea syndrome. 2. History of episodes of atrial fibrillation with syncope. 3. Restless legs syndrome symptoms. 4. Hypertension. 5. History of Hodgkin's lymphoma, treated by chemotherapy and radiation therapy in 2005. 6. Status post hernia repair. PLAN: 1. Home sleep apnea test to check patient's breathing during sleep. 2. Watching weight. 3. Sleep hygiene with regular time in bed for 7-1/2 to 8 hours. 4. No driving if feeling sleepiness. Thank you very much for referring this patient for consultation. Sincerely, Yanick Velez MD, PhD, FAASM Diplomat of [employer] Supervisor of [facility] [place] MMODL / STANFORDN: [id number] /
== END ==
CPT/HCPCS: 99211

== ENCOUNTER → 2021-03-31 | Outpatient (CLI) | payer BC ==
--- NOTE | 2021-03-31 23:18 | SFUN ---
SLEEP CENTER FOLLOW UP NOTE DATE OF SERVICE: 03/31/2021. 45-year-old gentleman has been followed in Sleep Center to discuss results of the sleep studies and following plan. The patient had 2 home sleep apnea tests and both tests did not show significant respiratory abnormalities during sleep. During the first test, Apnea-hypopnea index 2.2 and 5 snoring events, lowest oxygen level of 88%. During the second test, apnea- hypopnea index 0.6, 24 snoring events, lowest oxygen level 89%. I discussed results of the test with this patient in detail. Sometimes he feels sleepiness during the day. [place] Sleepiness Scale increased to 15 today. MEDICATIONS: Amlodipine 5 mg once a day, Eliquis 5 mg twice a day, lisinopril 20 mg once a day. Metoprolol 25 mg twice a day. PHYSICAL EXAMINATION: GENERAL: Patient in no distress. BP 100/63, HR 86, RR 16, height 5 feet 8 inches, weight 187 pounds. Body mass index for 24.8, temperature 97.7, oxygen saturation at room air 99%. Oropharynx moderately low position of soft palate. Mallampati 2-3. NECK: Supple, no JVD. Thyroid is not palpable. LUNGS: Clear to percussion and to auscultation. Good air exchange. No wheezing or rhonchi. HEART: S1, S2 regular. No murmurs, gallops, or rubs. ABDOMEN: Soft and nontender. Bowel sounds are present. No organomegaly appreciated. EXTREMITIES: No clubbing or cyanosis. 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 Cranial nerves 2 to 7 intact. There is no fasciculation or atrophy. noted. No focal deficits observed. IMPRESSION: 1. No significant respiratory abnormalities by results of 2 home sleep apnea tests. Normal oxygenation during the sleep. 2. History of episodes of atrial fibrillation. 3. History of syncopal episodes. 4. Hypertension. PLAN: 1. Sleep hygiene with regular time in bed for 7-1/2 to 8 hours. 2. Preferable position during sleep on the side. 3. Watching weight. 4. Precautions related to driving. No driving if feeling sleepiness. 5. I discussed with the patient possibility for evaluation for possible excessive daytime sleepiness with naps. At the present time, he preferred not to do that type of testing. 6. Follow-up visit in one year. Thank you very much for allowing me to participate in management of your patient. Sincerely, Yanick Velez MD, PhD, FAASM Diplomat of [employer] [employer] [employer] Pathology Technologist of [facility] [place] ROBIN / ALEKSEY: [id number] /
== END ==
LOC: SLEEP 11:37
PROVIDERS: ATTEND Internal Medicine
DX: Z09 Encounter for follow-up examination after completed treatment for conditions other than malignant neoplasm (principal); I10 Essential (primary) hypertension; Z86.79 Personal history of other diseases of the circulatory system; I48.91 Unspecified atrial fibrillation; Z79.899 Other long term (current) drug therapy; Z88.0 Allergy status to penicillin
CPT/HCPCS: 99211

== ENCOUNTER → 2022-03-28 | Outpatient (CLI) | payer BC ==
[2022-03-28 14:23] LABS: HCT 41.3 % (39.6-50.0); HGB 13.4 g/dL (13.0-17.0); MCH 30.5 pg (27.0-32.0); MCHC 32.4 g/dL (32.0-37.0); MCV 93.9 fL (80.0-97.0); NRBC Per 100 WBC 0 /100 WBCS (0.0-0.0); Platelet Count 286 X 10*3/uL (140-440); RDW 12.2 % (11.5-14.5); WBC 10.52 X 10*3/uL (4.50-10.00)
[2022-03-28 14:57] LABS: ALT 20 U/L (10-49); AST 23 U/L (14-35); African American GFR (CKD) 83.9 (60.0-200.0); Albumin 4.6 g/dL (3.8-4.9); Albumin/Globulin Ratio 1.82 (1.60-3.17); Alkaline Phosphatase 102 U/L (41-126); Blood Urea Nitrogen 17.3 mg/dL (9.0-27.0); Calcium 9.6 mg/dL (8.7-10.3); Carbon Dioxide 26.4 mmol/L (20.0-27.5); Chloride 102 mmol/L (96-109); Chol/HDL Ratio 4.75 Ratio; Globulin 2.6 g/dL (1.6-3.3); Glucose 102 mg/dL (70-110); LDL Cholesterol,Calculated 132.3 mg/dL (0.0-131.0); Non-African American GFR(CKD) 72.4 (60.0-200.0); Potassium 5.1 mmol/L (3.5-5.5); Sodium 139 mmol/L (135-145); Total Protein 7.2 g/dL (6.2-8.2)
== END | disposition home or self-care (01) ==
LOC: LABWHC1 07:39
PROVIDERS: ATTEND Family Medicine
DX: Z00.01 Encounter for general adult medical examination with abnormal findings (principal)
CPT/HCPCS: 36415; 80053; 80061; 85027

== ENCOUNTER → 2023-05-24 | Outpatient (CLI) | payer BC ==
[2023-05-24 18:09] LABS: HCT 42.6 % (39.6-50.0); HGB 13.7 d/dL (13.0-17.0); MCHC 32.2 d/dL (32.0-37.0); MCV 93.4 FL (80.0-97.0); Mean Platelet Volume 9.8 FL (9.5-12.2); NRBC Per 100 WBC 0 X 10*3/uL (0.00-0.01); Platelet Count 276 X 10*3/uL (140-440); RBC 4.56 X 10*6/uL (4.40-5.60); RDW 12.6 % (11.5-14.5); WBC 6.04 X 10*3/uL (4.50-10.00)
[2023-05-24 18:20] LABS: ALT 19 U/L (10-49); AST 23 U/L (14-35); Albumin 4.6 d/dL (3.8-4.9); Albumin/Globulin Ratio 1.92 Ratio (1.60-3.17); Alkaline Phosphatase 95 U/L (41-126); BUN/Creat Ratio 14.69 Ratio (12.00-20.00); Blood Urea Nitrogen 19.1 mg/dL (9.0-27.0); Calcium 9.9 mg/dL (8.7-10.3); Carbon Dioxide 26.2 mmol/L (21.6-31.8); Chloride 102 mmol/L (96-109); Chol/HDL Ratio 5.08 Ratio; Globulin 2.4 d/dL (1.6-3.3); Glucose 97 mg/dL (70-110); LDL Cholesterol,Calculated 159.7 mg/dL (0.0-131.0); Potassium 4.7 mmol/L (3.5-5.5); Sodium 139 mmol/L (135-145); Total Bilirubin 0.5 mg/dL (0.3-1.2)
== END | disposition home or self-care (01) ==
LOC: LABWHC1 08:49
PROVIDERS: ATTEND Family Medicine
DX: Z00.01 Encounter for general adult medical examination with abnormal findings (principal)
CPT/HCPCS: 36415; 80053; 80061; 85027

== ENCOUNTER → 2024-06-09 | Outpatient (CLI) | payer BC | END | disposition home or self-care (01) | LOC: LABWHC1 09:03 | PROVIDERS: ATTEND Family Medicine | DX: Z00.01 Encounter for general adult medical examination with abnormal findings (principal) | CPT/HCPCS: 36415; 80053; 84153; 85027 ==

== ENCOUNTER → 2024-07-17 | Outpatient (CLI) | payer BC ==
[2024-07-17 10:23] LABS: Basophils # (A) 0.06 X 10*3/uL (0.00-0.10); Basophils % (A) 0.5 %; Eosinophils # (A) 0.18 X 10*3/uL (0.04-0.35); Eosinophils % (A) 1.4 %; HCT 42.8 % (39.6-50.0); Lymphocytes # (A) 2.53 X 10*3/uL (0.90-5.00); Lymphocytes % (A) 19.2 %; MCH 30.4 pg (27.0-32.0); MCHC 32.7 g/dL (32.0-37.0); MCV 92.8 FL (80.0-97.0); Mean Platelet Volume 9.2 FL (9.5-12.2); Monocytes # (A) 1.35 X 10*3/uL (0.20-1.00); Monocytes % (A) 10.3 %; NRBC Per 100 WBC 0 X 10*3/uL (0.00-0.01); Neutrophils # (A) 8.76 X 10*3/uL (1.80-7.70); Neutrophils % (A) 66.5 %; Platelet Count 407 X 10*3/uL (140-440); RBC 4.61 X 10*6/uL (4.40-5.60); RDW 12.4 % (11.5-14.5); WBC 13.15 X 10*3/uL (4.50-10.00)
[2024-07-17 10:33] LABS: ALT 26 U/L (10-49); AST 16 U/L (14-35); Albumin 4.4 g/dL (3.8-4.9); Albumin/Globulin Ratio 1.52 Ratio (1.60-3.17); Alkaline Phosphatase 100 U/L (41-126); BUN/Creat Ratio 18.79 Ratio (12.00-20.00); Blood Urea Nitrogen 26.3 mg/dL (9.0-27.0); Calcium 9.8 mg/dL (8.7-10.3); Carbon Dioxide 28.1 mmol/L (21.6-31.8); Chloride 99 mmol/L (96-109); Creatine Kinase 61 U/L (35-257); Globulin 2.9 g/dL (1.6-3.3); Glucose 97 mg/dL (70-110); Potassium 4.2 mmol/L (3.5-5.5); Sodium 139 mmol/L (135-145); Total Bilirubin 0.4 mg/dL (0.3-1.2); Total Protein 7.3 g/dL (6.2-8.2)
== END | disposition home or self-care (01) ==
LOC: LABWHC1 07:44
PROVIDERS: ATTEND Family Medicine
DX: R79.89 Other specified abnormal findings of blood chemistry (principal)
CPT/HCPCS: 36415; 80053; 82550; 85025